=== PATIENT | female | born 1980 | race Two or more races ===

== ENCOUNTER 2018-11-23 19:14 | Emergency (ER) | payer MEDICAID, OTHER ==
[~2018-11-23] VITALS: Ht 162.6 cm; Wt 71.2 kg
--- NOTE | 2018-11-23 19:48 | NUR ---
ED Nurse Note: patient walked into ED c/o of lower back pain that started around 2 days ago, patient does have a hx of sciatic pain, patient is alert and oriented x4, ambulatory with a steady gait, VSS
[2018-11-23 19:52] VITALS: BP 135/67
--- NOTE | 2018-11-23 20:26 | Emergency Room Report ---
History of Present Illness General Chief Complaint: Back Pain-No Injury Source: Patient Present Illness HPI Pt. presents to the ED c/o 08/19 in severity Left -sided low back pain that shoots down the leg x 2days. PT. took 600mg IBU [employer]. The patient reports having a history of sciatica and states that her symptoms are consistent with previous episodes. Patient states that typically her pain resolves in about a day with rest and warm compresses. States that this has not provided her relief this time around. She denies trauma or fall. Denies saddle anesthesia, urinary incontinence or bowel incontinence. Denies urinary retention. She denies recent spinal procedures or history of neoplastic disease. PT. reports unable to find a POC, and sitting makes her pain worse. Denies abdominal pain, urinary frequency, urgency or hematuria. Allergies: Coded Allergies: No Known Allergies (Unverified , 11/23/18) Patient History Past Medical History: see triage record Past Surgical History: none Pertinent Family History: none Last Menstrual Period: [id number] Now: No Reviewed Nursing Documentation: PMH: Agreed; PSxH: Agreed Nursing Documentation-PMH Past Medical History: No Stated History Hx Cardiac Problems: No Hx Hypertension: No Hx Pacemaker: No Hx Asthma: No Hx COPD: No Hx Diabetes: No Hx Cancer: No Hx Gastrointestinal Problems: No Hx Dialysis: No History Of Psychiatric Problem: No Hx Neurological Problems: No Hx Cerebrovascular Accident: No Hx Seizures: No Review of Systems All Other Systems: negative except mentioned in HPI Physical Exam Vital Signs Date Time Temp Pulse Resp B/P (MAP) Pulse Ox O2 Delivery O2 Flow Rate FiO2 11/23/18 19:43 99.0 93 16 135/67 98 Room Air Sp02 EP Interpretation: reviewed, normal General Appearance: no apparent distress, alert, GCS 15, non-toxic Head: normocephalic, atraumatic Eyes: bilateral eye normal inspection, bilateral eye PERRL ENT: hearing grossly normal, normal voice Neck: full range of motion Respiratory: lungs clear, normal breath sounds, speaking full sentences Cardiovascular #1: regular rate, rhythm Gastrointestinal: non tender, soft Rectal: deferred Genitourinary: normal inspection, no CVA tenderness Musculoskeletal: back normal, gait/station normal, normal range of motion, non- tender Neurologic: alert, oriented x3, responsive, motor strength/tone normal, sensory intact, normal gait, speech normal, grossly normal Psychiatric: judgement/insight normal Skin: normal color, no rash, warm/dry, well hydrated Lymphatic: no adenopathy Medical Decision Making PA Attestation Dr. Cespedes is my supervising Physician whom patient management has been discussed with. Diagnostic Impression: Primary Impression: Back pain Qualified Codes: M54.5 - Low back pain ER Course Pt. presents to the ED c/o Left -sided low back pain that shoots down the leg x 2days. PT. took 600mg IBU [employer]. The patient reports having a history of sciatica and states that her symptoms are consistent with previous episodes. Patient states that typically her pain resolves in about a day with rest and warm compresses. States that this has not provided her relief this time around. She denies trauma or fall. Denies saddle anesthesia, urinary incontinence or bowel incontinence. Denies urinary retention. She denies recent spinal procedures or history of neoplastic disease. PT. reports unable to find a POC, and sitting makes her pain worse. Ddx considered but are not limited to Fracture, dislocation, contusion, epidural abscess, Sprain/Strain/Spasm Vital signs: are WNL, pt. is afebrile H&PE are most consistent with sciatica ORDERS: X-ray not required at this time, no spinous process tenderness ED INTERVENTIONS: -Soma PO DISCHARGE: At this time pt. is stable for d/c to home. Will provide printed patient care instructions, and any necessary prescriptions. Care plan and follow up instructions have been discussed with the patient prior to discharge. Last Vital Signs Date Time Temp Pulse Resp B/P (MAP) Pulse Ox O2 Delivery O2 Flow Rate FiO2 11/23/18 19:52 98.8 82 16 135/67 98 Room Air Disposition: HOME, SELF-CARE Condition: Stable Patient Instructions: Sciatica Additional Instructions: Take medications as directed. Follow up with a Primary Care Provider in 3-5 days, even if your symptoms have resolved. --Please review list of primary care clinics, if you do not already have a primary care provider Return sooner to ED if new symptoms occur, or current symptoms become worse. Do not drink alcohol, drive, or operate heavy machinery while taking Robaxin ( Muscle Relaxers) as this may cause drowsiness. - Please note that this Emergency Department Report was dictated using [employer] picture operator technology software, occasionally this can lead to erroneous entry secondary to interpretation by the dictation equipment. Marlyn Vergara Nov 23, 2018 20:26
[2018-11-23] MEDS ORDERED: LIDODERM700 M1 TOPIC (20:27)
[2018-11-23] MEDS ORDERED: ROBAXIN-750750 MG PO (20:27)
[2018-11-23] MEDS ORDERED: NAPROXEN500 M2 ORAL (20:27)
[2018-11-23 20:45] VITALS: BP 128/65
--- NOTE | 2018-11-23 20:45 | NUR ---
ED Nurse Note: Patient is being discharged from ED alert and oriented x4, ambulatory with a steady gait, VSS. patient acknowledged the need to follow up with PMD within a week if symptoms dont improve, Id band removed, prescription in hand and all belongings sent home with patient
== END 2018-11-23 21:00 | disposition home or self-care (01) ==
LOC: EMR 20:52
DX: M54.5 Low back pain (principal)
CPT/HCPCS: 99282

== ENCOUNTER 2020-01-05 10:18 | Emergency (ER) | payer OTHER ==
[~2020-01-05] VITALS: Ht 162.6 cm; Wt 69.9 kg
[~2020-01-05 10:18] MED LIST: LIDODERM700 M1 TOPIC; NAPROXEN500 M2 ORAL; ROBAXIN-750750 MG PO
[2020-01-05 10:21] VITALS: BP 103/64
[2020-01-05] MEDS ORDERED: IBUPROFEN600 MG ORAL ×2 (10:27→10:39)
--- NOTE | 2020-01-05 10:31 | NUR ---
ED Nurse Note: Pt from [facility] walked in due to left upper leg pain that radiates to her lower back x 3 days now. Denies injury but has hx of sciatic nerve pain. Pt took ibuprofen around 0700am but pain did not improve. AAO x4, ambulatory.
[2020-01-05] MEDS ORDERED: LIDODERM700 M1 TOPIC (10:39)
[2020-01-05] MEDS ORDERED: ROBAXIN-750750 MG PO (10:39)
--- NOTE | 2020-01-05 10:43 | Emergency Room Report ---
History of Present Illness General Chief Complaint: Pain Source: Patient Present Illness HPI Disclaimer: Please note that this report is being documented using [employer] technology. This can lead to erroneous entry secondary to incorrect interpretation by the dictating instrument. HPI: 39-year-old female with history of sciatica presents for evaluation of left -sided back pain. Symptoms began yesterday morning. Cannot recall specific injury or abnormal movement. She is complaining of mid back pain that radiates down the left leg. Sometimes there is a warm tingling sensation. Denies any urinary retention, fecal incontinence, lower extremity weakness, loss of sensation, fever, chills. She has had sciatica before beginning 3 years ago with the of her last child. Symptoms are intermittent. She was seen last year with similar symptoms and responded well to ibuprofen, Robaxin and lidocaine patches. She took 1 600 mg ibuprofen that she had leftover without significant improvement. She is requesting refills of her medications. Follows regularly with PMD. Allergies: Coded Allergies: No Known Allergies (Unverified , 11/23/18) Patient History Last Menstrual Period: 01/03/20 Nursing Documentation-[facility] Past Medical History: No History, Except For Hx Hypertension: No Hx Pacemaker: No Hx Asthma: No Hx COPD: No Hx Diabetes: No Hx Cancer: No Hx Gastrointestinal Problems: No Hx Dialysis: No Hx Neurological Problems: No Hx Cerebrovascular Accident: No Hx Seizures: No Review of Systems All Other Systems: negative except mentioned in HPI Physical Exam Vital Signs Date Time Temp Pulse Resp B/P (MAP) Pulse Ox O2 Delivery O2 Flow Rate FiO2 01/05/20 10:21 98.2 77 16 103/64 (77) 99 Room Air General: Awake and alert, no acute distress HEENT: NC/AT. EOMI. Resp: Normal work of breathing Skin: Intact. No abrasions, laceration or rash over the exposed skin MSK: Normal tone and bulk. Moving all extremities. No obvious deformity. Ambulating without difficulty. Strength is 5/5 at the hips, knees and ankles. Neuro: Awake and alert. Mentating appropriately. No saddle anesthesia. Sensation intact over the dermatomes of lower extremity. Spine: No tenderness, step-off or deformity in the lumbosacral spine. There is moderate left-sided paraspinal tenderness extending over the left superior gluteus. Medical Decision Making Diagnostic Impression: Primary Impression: Sciatic pain ER Course 39-year-old female history of sciatica presents for evaluation of 1 day back pain. Differential includes was not limited to disc herniation, sciatic pain, radiculopathy, back spasm, ligamentous injury. There is no new injury patient is neurologically intact. Does not require emergent imaging at this time. Symptoms most consistent with sciatica given her history. Will refill ibuprofen , Robaxin and lidocaine patches. She will be discharged to follow-up with her PMD and referral to a commercial credit specialist. Discussed conservative management as well as physical therapy, sports rehab, massage therapy. She will follow-up for these alternatives with her PMD. Discussed reasons to return to the emergency department. She understands and agrees with this treatment plan. Last Vital Signs Date Time Temp Pulse Resp B/P (MAP) Pulse Ox O2 Delivery O2 Flow Rate FiO2 01/05/20 10:21 98.2 77 16 103/64 (77) 99 Room Air Disposition: HOME, SELF-CARE Condition: Stable Scripts Ibuprofen* (MOTRIN*) 600 Mg Tablet 600 MG ORAL Q6H PRN for For Pain, #20 TAB Prov: Vaibhav Freire MD 01/05/20 Lidocaine Patch* (Lidoderm Patch*) 1 Each Adh..patch 1 PATCH TOPIC DAILY, #30 PATCH 0 Refills Patch(es) may remain in place for up to 12 hours in any 24-hour period. Prov: Vaibhav Freire MD 01/05/20 Methocarbamol* (ROBAXIN-750*) 750 Mg Tablet 750 MG PO QID for 7 Days, #28 TAB 0 Refills Prov: Vaibhav Freire MD 01/05/20 Referrals: Zoey Birch. [facility] Open 24 hour /7 days a week by Appointment Only [address] [facility] [address] [facility] [address] Patient Instructions: Sciatica, Herniated Disk With Rehab-Sports[facility] Additional Instructions: Use the medications as prescribed, sit in hot baths, perform stretching exercises as able. Follow-up with your primary care doctor for referral to spinal specialist and discuss sports rehab, physical therapy, massage therapy and other interventions for lumbar disc disease/sciatica. If you have any new or worsening symptoms including but not limited to inability to pass urine, uncontrollable pain, sudden weakness, changes in balance, loss of bowel control return to the emergency department immediately for reevaluation. Vaibhav Freire MD Jan 05, 2020 10:43
--- NOTE | 2020-01-05 10:45 | NUR ---
ER DISCHARGE NOTE: Patient is cleared to be discharged per ERMD, pt is aox4, on room air, with stable vital signs. pt was given dc and prescription instructions, pt was able to verbalize understanding, pt id band removed. pt is able to ambulate with steady gait. pt took all belongings.
== END 2020-01-05 10:45 | disposition home or self-care (01) ==
LOC: EMR 10:35
DX: M54.30 Sciatica, unspecified side (principal)
CPT/HCPCS: 99282